=== PATIENT | female | born 1990 | race Two or more races ===

== ENCOUNTER 2019-07-27 10:15 | Emergency (ER) | payer MEDICAID, OTHER ==
[~2019-07-27] VITALS: Ht 152.4 cm; Wt 50.0 kg
[2019-07-27 11:49] LABS: BILIRUBIN,URINE NEGATIVE (NEG); CLARITY,URINE CLEAR; COLOR,URINE YELLOW; NITRITE,URINE NEGATIVE (NEG); PH,URINE 6.5 (<5.0-8.0); PROTEIN,URINE NEGATIVE (NEG-TRACE)
[2019-07-27] MEDS ORDERED: LIDOCAINE 1% Multi-Dose 20 ML VIAL. INJ ONE (12:00)
[2019-07-27 12:09] LABS: BACTERIA,URINE 0 /HPF (0-FEW); RBC,URINE 0 /HPF (0-2); SQUAMOUS EPITHELIAL CELL,UR FEW /LPF; WBC,URINE 0 /HPF (0-4)
[2019-07-27] MEDS ORDERED: HYDROcodone/APAP 5/325MG 1 TAB TABLET PO ONE (14:15)
[2019-07-27] MEDS ORDERED: IBUPROFEN 400 MG TABLET. PO ONE (14:15)
[2019-07-27] MEDS ORDERED: SULF1TAB24 PO (15:22)
[2019-07-27] MEDS ORDERED: IBUP-571 PO (15:22)
[2019-07-27] MEDS ORDERED: HYDR-3164 PO (15:22)
--- NOTE | 2019-07-27 15:22 | PHYS DOC ---
Past Medical History Past Medical History: No Pertinent History Past Surgical History: Smoking Status: Never Smoker Alcohol Use: None General Adult EDM: Chief Complaint: PELVIC PAIN HPI: HPI: Patient is a 28 year old female who presented to the ER for evaluation of painful, swollen lesion on left side of her vagina for about 5 days. No fever. Patient does not speak Serbian well. Review of Systems: Review of Systems: Constitutional: Denies fever or chills. [] Eyes: Denies change in visual acuity. [] HENT: Denies nasal congestion or sore throat. [] Respiratory: Denies cough or shortness of breath. [] Cardiovascular: Denies chest pain or edema. [] GI: Denies abdominal pain, nausea, vomiting, bloody stools or diarrhea. [] : Denies dysuria. Positive for Left side vaginal pain and swelling Musculoskeletal: Denies back pain or joint pain. [] Integument: Denies rash. [] Neurologic: Denies headache, focal weakness or sensory changes. [] Endocrine: Denies polyuria or polydipsia. [] Lymphatic: Denies swollen glands. [] Psychiatric: Denies depression or anxiety. [] Heart Score: Risk Factors: Risk Factors: DM, Current or recent (<one month) smoker, HTN, HLP, family history of CAD, obesity. Risk Scores: Score 0 - 3: 2.5% MACE over next 6 weeks - Discharge Home Score 4 - 6: 20.3% MACE over next 6 weeks - Admit for Clinical Observation Score 7 - 10: 72.7% MACE over next 6 weeks - Early Invasive Strategies Current Medications: Current Medications Medications (Trade) Dose Ordered Sig/Hiral Start Time Stop Time Status Last Admin Dose Admin Acetaminophen/ Hydrocodone Bitart (Lortab 5/325) 1 tab 1X ONCE 07/27/19 14:15 07/27/19 14:16 DC 07/27/19 14:27 1 TAB Ibuprofen (Motrin) 400 mg 1X ONCE 07/27/19 14:15 07/27/19 14:16 DC 07/27/19 14:27 400 MG Lidocaine HCl (Lidocaine 1% 20ml Vial) 20 ml 1X ONCE 07/27/19 12:00 07/27/19 12:01 DC 07/27/19 13:24 20 ML Allergies: Allergies: Allergies Coded Allergies Type Severity Reaction Last Updated Verified No Known Drug Allergies 07/27/19 No Physical Exam: PE: Constitutional: Well developed, well nourished, no acute distress, non-toxic appearance. [] HENT: Normocephalic, atraumatic, bilateral external ears normal, oropharynx moist, no oral exudates, nose normal. [] Eyes: PERRLA, EOMI, conjunctiva normal, no discharge. [] Neck: Normal range of motion, no tenderness, supple, no stridor. [] Cardiovascular:Heart rate regular rhythm, no murmur [] Lungs & Thorax: Bilateral breath sounds clear to auscultation [] Abdomen: Bowel sounds normal, soft, no tenderness, no masses, no pulsatile mass es. [] Skin: Warm, dry, There is a large tender, swollen abscess on the left labia major consistent with Bartholin gland abscess. Back: No tenderness, no CVA tenderness. [] Extremities: No tenderness, no cyanosis, no clubbing, ROM intact, no edema. [] Neurologic: Alert and oriented X 3, normal motor function, normal sensory function, no focal deficits noted. [] Psychologic: Affect normal, judgement normal, mood normal. [] Current Patient Data: Labs: Laboratory Tests Test 07/27/19 11:33 07/27/19 11:45 Urine Collection Type Unknown Urine Color Yellow Urine Clarity Clear Urine pH 6.5 (<5.0-8.0) Urine Specific [place] 1.010 (1.000-1.030) Urine Protein Negative mg/dL (NEG-TRACE) Urine Glucose (UA) Negative mg/dL (NEG) Urine Ketones (Stick) Trace mg/dL (NEG) Urine Blood Negative (NEG) Urine Nitrite Negative (NEG) Urine Bilirubin Negative (NEG) Urine Urobilinogen Dipstick 1.0 mg/dL (0.2 mg/dL) Urine Leukocyte Esterase Negative (NEG) Urine RBC 0 /HPF (0-2) Urine WBC 0 /HPF (0-4) Urine Squamous Epithelial Cells Few /LPF Urine Bacteria 0 /HPF (0-FEW) POC Urine HCG, Qualitative Hcg negative (Negative) Vital Signs: Vital Signs Date Time Temp Pulse Resp B/P (MAP) Pulse Ox O2 Delivery O2 Flow Rate FiO2 07/27/19 14:27 20 98 Room Air 07/27/19 11:10 98.6 105 118/66 (83) 98.6 EKG: EKG: [] Radiology/Procedures: Radiology/Procedures: Indication: bartholin gland abscess Procedure: The patient was positioned appropriately. Local anesthesia was 1% lidocaine 10 ml. An incision was then made over the apex of the lesion and large amount of yellow material was expressed. The drainage cavity was irrigated and packed with Word catheter. The patients tetanus status updated as needed. The patient tolerated the procedure well. Complications: none Course & Med Decision Making: Course & Med Decision Making Pertinent Labs and Imaging studies reviewed. (See chart for details) [] Dragon Disclaimer: Dragon Disclaimer: This electronic medical record was generated, in whole or in part, using a voice recognition dictation system. Departure Departure Impression: Primary Impression: Bartholin's gland abscess Disposition: 01 HOME, SELF-CARE Condition: IMPROVED Referrals: UNKNOWN PCP NAME (PCP) CLAUDIO TATE MD PLEASE CALL THIS SENIOR ACCOUNT DIRECTOR doctor in 3-5 days Patient Instructions: Bartholin's Cyst or Abscess Scripts Ibuprofen (Ibu) 600 Mg Tablet 1 TAB PO Q6-8HRS for pain, fever, inflammation for 6 Days, #24 TAB 0 Refills Prov: MARIE REYES DO 07/27/19 Hydrocodone/Apap 5-325 (NORCO 5-325 TABLET) 1 Each Tablet 1 TAB PO PRN Q6HRS PRN for PAIN, #12 TAB 0 Refills Prov: MARIE REYES DO 07/27/19 Sulfamethoxazole/Trimethoprim (BACTRIM DS TABLET) 1 Each Tablet 1 TAB PO BID for 10 Days, #20 TAB 0 Refills Prov: MARIE REYES DO 07/27/19 MARIE REYES DO July 27, 2019 15:22
[2019-07-27 15:25] VITALS: BP 108/55
== END 2019-07-27 15:35 | disposition home or self-care (01) ==
LOC: ER 10:15
DX: N75.1 Abscess of Bartholin's gland (principal)
CPT/HCPCS: 56420; 81001; 81025; 99284; J3490; 96372; 99283